=== PATIENT | female | born 2005 | race Caucasian/White ===

== ENCOUNTER 2023-10-19 12:19 | Emergency (ER) | payer BC ==
[~2023-10-19] VITALS: Ht 157.5 cm; Wt 81.8 kg
[2023-10-19 12:25] VITALS: TEMP 98.1
[2023-10-19] MEDS ORDERED: NS 1,000 ML IV ONE (13:30)
[2023-10-19] MEDS ORDERED: Ondansetron 4 MG/2 ML VIAL IV ONE (13:30)
[2023-10-19 13:54] LABS: BASO # 0.1 K/mm3 (0.0-0.2); BASO % 0.5 % (0.0-2.0); EOS % 0.3 % (0.0-4.0); GRAN # 10.1 K/mm3 (1.4-6.5); HEMATOCRIT 45.4 % (35.0-45.0); HEMOGLOBIN 15.6 g/dl (12.0-15.0); LYMPH # 1.5 K/mm3 (1.2-3.4); LYMPH % 12.5 % (20.0-51.0); MEAN CELL VOLUME 88 fl (80.0-95.0); MEAN CORPUSCULAR HEMOGLOBIN 30 pg (26-32); MEAN CORPUSCULAR HGB CONC 34 g/dl (33.0-37.0); MEAN PLATELET VOLUME 10.6 fl (7.4-10.4); MONO # 0.6 K/mm3 (0.1-0.6); MONO % 4.5 % (1.7-9.3); PLATELET COUNT 348 K/mm3 (130-400); RED BLOOD COUNT 5.14 M/mm3 (4.10-5.30); REDCELL DISTRIBUTION WIDTH-CV 12.2 % (11.5-14.5)
[2023-10-19 14:16] LABS: ALBUMIN 4.2 g/dL (3.5-5.0); BILIRUBIN,TOTAL 0.5 mg/dL (0.2-1.2); CALCIUM 10.5 mg/dL (8.4-10.2); CREATININE, serum 0.86 mg/dL (0.57-1.11); TOTAL PROTEIN 8.2 g/dl (6.2-8.1)
[2023-10-19] MEDS ORDERED: Ketorolac 15 MG/ML VIAL IV ONE (15:00)
[2023-10-19 15:28] LABS: COLLECTION METHOD CLEAN CATCH; URINE APPEARANCE Clear (CLEAR/HAZY); URINE COLOR YELLOW (YELLOW); URINE GLUCOSE Negative (NEGATIVE); URINE KETONE TRACE (NEGATIVE); URINE PROTEIN(semi-quant) 1+ (NEGATIVE)
[2023-10-19 15:29] LABS: URINE BLOOD Negative (NEGATIVE); URINE NITRATE Positive (NEGATIVE); URINE UROBILINOGEN 0.2 E.U/dL (0.2-1.0)
[2023-10-19] MEDS ORDERED: ZOFRAN ODT4 MG PO (15:57)
[2023-10-19] MEDS ORDERED: AMOXICILLIN 8751 TAB PO (15:59)
[2023-10-19] MEDS ORDERED: cefTRIAXone 1 G in Water For Injection,Sterile 10 ML IV ONE (16:00)
[2023-10-19 16:05] VITALS: BP 137/86; PULSE 82
[2023-10-22] MEDS ORDERED: CIPRO 500MG TA500 MG PO (07:54)
== END 2023-10-19 16:20 | disposition home or self-care (01) ==
LOC: COL.ER 12:19
PROVIDERS: Physician Assistant
DX: N12 Tubulo-interstitial nephritis, not specified as acute or chronic (principal)
CPT/HCPCS: J0696; J1885; J2405; J7030